=== PATIENT | female | born 1980 | race Two or more races ===

== ENCOUNTER 2024-11-22 10:48 | Emergency (ER) | payer BC ==
[2024-11-22 11:09] VITALS: BP 118/80; PULSE 76; RESP 17; TEMP 97.9; BMI 23.1
[2024-11-22] MEDS ORDERED: NAPROXEN 500 MG TABLET ONE (12:32)
[2024-11-22] MEDS: NAPROXEN 500 MG TABLET PO ONE (12:32)
== END 2024-11-22 13:17 | disposition home or self-care (01) ==
LOC: JERFT 10:48
DX: M54.50 Low back pain, unspecified (principal); X50.0XXA Overexertion from strenuous movement or load, initial encounter
CPT/HCPCS: 72100-TC-FY; 99283-25